=== PATIENT | female | born 1945 | race Caucasian/White ===

== ENCOUNTER 2019-02-17 11:11 | Outpatient (CLI) | payer MEDICARE, BC, SELFPAY ==
[2019-02-17 13:06] LABS: Abs Immature Grans 0.01 k/cumm (0.0-0.09); Absolute Basophil Count 0.06 k/cumm (0.0-0.2); Absolute Eosinophil Count 0.23 k/cumm (0.0-0.7); Absolute Lymphocyte Count 1.38 k/cumm (1.2-3.4); Absolute Monocyte Count 0.39 k/cumm (0.11-0.7); Absolute Neutrophil Count 2.94 k/cumm (1.2-6.7); Basophils % 1.2; Eosinophils % 4.6; HCT 39.9 % (36.0-46.0); HGB 13.6 g/dL (12.0-15.5); Immature Grans % 0.2; Lymphocytes % 27.5; Mean Corp. HGB Concentration 34.1 g/dL (32.0-36.0); Mean Corpuscular Hemoglobin 31.4 pg (27.0-33.0); Mean Corpuscular Volume 92.1 fL (80-95); Monocytes % 7.8; Neutrophils % 58.7; Platelet Count 294 x1000/uL (130-400); RBC 4.33 m/cumm (4.00-5.20); White Blood Cell Count 5.01 k/cumm (4.4-10.8)
[2019-02-17 13:27] LABS: ALT 34 U/L (12-78); AST 28 U/L (15-37); Albumin 3.9 g/dL (3.4-5.0); Alkaline Phosphatase 75 U/L (46-116); Anion Gap 9.9 mmol/L (3-11); BUN 13 mg/dL (7-18); Bilirubin, Total 0.6 mg/dL (0.2-1.0); C-Reactive Protein 0.44 mg/dL (0.0-0.3); CO2 29.1 mmol/L (21.0-32.0); CREATININE 0.71 mg/dL (0.55-1.02); Calcium 9.1 mg/dL (8.5-10.1); Chloride 102 mmol/L (98-107); Glucose 95 mg/dL (70-100); Potassium 3.6 mmol/L (3.5-5.1); Sodium 141 mmol/L (136-145); TSH 1.21 uIU/mL (0.358-3.74); Total Protein 7.1 g/dL (6.4-8.2)
[2019-02-17 14:03] LABS: ESR 18 MM/HR (0-30)
[2019-02-18 12:26] LABS: Lyme Ab w Rflx to Lyme Confirm Negative
== END 2019-02-17 11:31 ==
PROVIDERS: PCP Emergency Medicine; Visit Provider Emergency Medicine
DX: R53.83 Other fatigue (principal); E03.9 Hypothyroidism, unspecified; M25.50 Pain in unspecified joint
CPT/HCPCS: 36415; 80053; 85652; 84443; 85025; 86140; 86618

== ENCOUNTER → 2019-04-17 10:23 | Outpatient (BNVA) | payer MEDICARE, BC, SELFPAY | PROVIDERS: PCP Emergency Medicine; Referring Provider Emergency Medicine; Visit Provider Student in an Organized Health Care Education/Training Program | DX: M70.61 Trochanteric bursitis, right hip (principal); M70.62 Trochanteric bursitis, left hip; M76.891 Other specified enthesopathies of right lower limb, excluding foot; I10 Essential (primary) hypertension | CPT/HCPCS: 20610; 99213; J1040 ==

== ENCOUNTER 2019-08-27 00:34 | Outpatient (CLI) | payer MEDICARE, BC, SELFPAY ==
--- NOTE | 2019-08-27 12:45 | DI.MAMMO_ITS ---
EXAM: MG MAMMO SCREENING CLINICAL HISTORY: screening,z12.39 TECHNIQUE: Mammograms were interpreted according to the usual protocol including computer analysis w [employer] CAD system, tomosynthesis and C-view imaging. COMPARISON: Current examination is compared with multiple previous examinations including September 28 FINDINGS: The breasts are of moderate density with fairly symmetrical distribution of fibroglandular tissue. N o dominant mass or clumped microcalcification identified in either breast. Current examination is co mpared with multiple previous examinations including September 2017 and there has been no gross interva l change in appearance in comparison with previous studies. IMPRESSION: No specific evidence of malignancy at this time. Routine screening examinations are suggested at year ly intervals due to the family history of breast carcinoma. Category 1, breast density category B. BI-RADS Cat 1 - Negative Breast Density - Category B - Scattered areas of fibroglandular density
== END 2019-08-27 00:54 ==
PROVIDERS: PCP Emergency Medicine; Visit Provider Emergency Medicine
DX: Z12.31 Encounter for screening mammogram for malignant neoplasm of breast (principal); Z80.3 Family history of malignant neoplasm of breast
CPT/HCPCS: 77063; 77067

== ENCOUNTER 2019-09-30 10:29 | Outpatient (CLI) | payer MEDICARE, BC, SELFPAY ==
--- NOTE | 2019-09-30 10:03 | DI.RAD_ITS ---
EXAM: XR CHEST 2V PA LATERAL CLINICAL HISTORY: night sweats R61 GENERALIZED HYPERHIDROSIS. TECHNIQUE: 2D digital imaging was performed. COMPARISON: LEFT RIBS TO INCLUDE CXR from 04/06/2011 FINDINGS: LUNGS: Clear. No pleural abnormality seen. HEART: Normal. MEDIASTINUM: Normal. OTHER FINDINGS:Normal. BONE:Normal. IMPRESSION: No acute pulmonary findings.
== END 2019-09-30 10:49 ==
PROVIDERS: PCP Emergency Medicine; Visit Provider Emergency Medicine
DX: R61 Generalized hyperhidrosis (principal)
CPT/HCPCS: 71046

== ENCOUNTER → 2020-07-07 11:40 | Outpatient (BNVA) | payer MEDICARE, BC, SELFPAY | PROVIDERS: PCP Emergency Medicine; Referring Provider Emergency Medicine; Visit Provider Student in an Organized Health Care Education/Training Program | DX: M76.891 Other specified enthesopathies of right lower limb, excluding foot (principal); I10 Essential (primary) hypertension; Z98.890 Other specified postprocedural states | CPT/HCPCS: 99213 ==

== ENCOUNTER → 2020-08-11 10:55 | Outpatient (BNVA) | payer MEDICARE, BC, SELFPAY | PROVIDERS: PCP Emergency Medicine; Referring Provider Emergency Medicine; Visit Provider Student in an Organized Health Care Education/Training Program | DX: M76.891 Other specified enthesopathies of right lower limb, excluding foot (principal) | CPT/HCPCS: 99213 ==

== ENCOUNTER 2020-10-04 12:35 | Outpatient (REF) | payer MEDICARE, BC, SELFPAY ==
[2020-10-04 21:21] LABS: Anion Gap 5.5 mmol/L (3-11); BUN 17 mg/dL (7-18); CO2 30.5 mmol/L (21.0-32.0); Calcium 9.5 mg/dL (8.5-10.1); Chloride 102 mmol/L (98-107); Glucose 77 mg/dL (74-106); Potassium 3.9 mmol/L (3.5-5.1); Sodium 138 mmol/L (136-145)
== END 2020-10-04 12:55 ==
LOC: LBN 12:35
PROVIDERS: PCP Emergency Medicine; Visit Provider Emergency Medicine
DX: I10 Essential (primary) hypertension (principal)
CPT/HCPCS: 80048

== ENCOUNTER 2021-01-19 01:16 | Outpatient (CLI) | payer MEDICARE, BC, SELFPAY ==
--- NOTE | 2021-01-19 08:00 | DI.MAMMO_ITS ---
Exam(s) MAMMO SCREENING EXAM: MAMMO SCREENING CLINICAL HISTORY: screening,Z12.39. TECHNIQUE: Bilateral full field digital CC and MLO mammographic images were obtained with 3D tomosyn thesis and utilizing computer aided detection (CAD). COMPARISON: Prior mammograms dating back to 2010, the most recent being August 2019. FINDINGS: There are no new significant radiograph findings in left breast. In the right breast there is a slightly lobulated noncalcified well-defined nodule measuring 7 by 5 m illimeters located 3 cm in from the nipple, slightly medial of center, seen on both MLO and CC 3D arlet ging. More posteriorly the right breast there is a slightly increasing group of microcalcifications and mac rocalcifications which is probably within a small fibroadenoma which is been joint progressive increa se in calcifications since 2016. There is no significant architectural distortion nor skin thickening-retraction. IMPRESSION: 1. No radiographic evidence of malignancy in left breast 2. Lobulated noncalcified 7 x 5 millimeter nodule in the right breast. Also increasing microcalcific ation group posterior in the right breast which may be within a fibroadenoma. Recommend additional s pot views and right breast ultrasound BI-RADS Category 0 - Assessment Incomplete: Need additional imaging evaluation Breast Density - Category B - Scattered areas of fibroglandular density Breast density Category C or D implies that the patient has dense breast tissue. Dense breast tissue can make it harder to find cancer on a mammogram. Dense breast tissue is also associated with an incr eased risk of breast cancer. This information about the result of the mammogram report was provided to the patient to raise their awareness. Use this report when you speak with the patient about their risks for breast cancer, which includes their family history. At that time, you may recommend additional screening tests (Ultrasoun d or MRI) as these tests may add significant information. A negative radiographic report should not delay biopsy if a dominant or clinically suspicious mass is present. Up to ten percent of cancers are not identified on mammography. A negative report may reinforce clinical impression. Adenosis and dense breasts may obscure an underlying neoplasm. False positive reports average 6 to 10%. Patient will receive a letter notifying them of these results.
== END 2021-01-19 01:36 ==
PROVIDERS: PCP Emergency Medicine; Visit Provider Emergency Medicine
DX: Z12.31 Encounter for screening mammogram for malignant neoplasm of breast (principal)
CPT/HCPCS: 77063; 77067

== ENCOUNTER 2021-01-30 00:56 | Outpatient (CLI) | payer MEDICARE, BC, SELFPAY ==
--- NOTE | 2021-01-30 | DI.US_ITS ---
Exam(s) US BREAST RT COMPLETE EXAM: US BREAST RT COMPLETE CLINICAL HISTORY: F/U MAMMO, NODULE,MICRO AND MACROCALCIFICATIONS,? FIBROADENOMA. TECHNIQUE: Complete ultrasound of the right breast was performed incluing all 4 quadrants, the retro areolar region, and the ipsilateral axilla. COMPARISON: Prior mammograms were reviewed. Today's diagnostic mammogram images were also reviewed FINDINGS: Complete ultrasound of the right breast today revealed only a solitary finding which corresponds to t he nodule described slightly medial of center. This is at the 1 o'clock position and has the appeara nce of a bilobed cyst measuring 7 by 3 millimeters. There is no ultrasound finding to correspond to what is probably a small partially calcified fibroade noma located posteriorly, seen on the mammogram. No significant focal findings in the retroareolar region. Scanning of the right axilla reveals fat containing lymph nodes. IMPRESSION: 1. There is a 7 x 3 millimeter benign slightly lobulated microcyst which corresponds to the nodule on the mammogram located approximately 3 cm in from the nipple. 2. No other focal ultrasound findings in all 4 quadrants of the right breast Appropriate follow-up is repeat right breast imaging in 6 months, this to include repeat right breast mammogram and ultrasound.. BI-RADS Category 3 - 6 month - Probably Benign Finding: Recommend follow-up mammography and ultrasoun d in 6 months Breast Density - Category B - Scattered areas of fibroglandular density Breast density Category C or D implies that the patient has dense breast tissue. Dense breast tissue can make it harder to find cancer on a mammogram. Dense breast tissue is also associated with an incr eased risk of breast cancer. This information about the result of the mammogram report was provided to the patient to raise their awareness. Use this report when you speak with the patient about their risks for breast cancer, which includes their family history. At that time, you may recommend additional screening tests (Ultrasoun d or MRI) as these tests may add significant information. A negative radiographic report should not delay biopsy if a dominant or clinically suspicious mass is present. Up to ten percent of cancers are not identified on mammography. A negative report may reinforce clinical impression. Adenosis and dense breasts may obscure an underlying neoplasm. False positive reports average 6 to 10%. Patient will receive a letter notifying them of these results.
--- NOTE | 2021-01-30 15:06 | DI.MAMMO_ITS ---
Exam(s) MAMMO SCREEN CALL BACK UNI EXAM: MAMMO SCREEN CALL BACK UNI CLINICAL HISTORY: F/U MAMMO, NODULE,MICRO AND MACROCALCIFICATIONS,? FIBROADENOMA. TECHNIQUE: Unilateral spot mammographic images were obtained with 3D tomosynthesis and utilizing [employer] aided detection (CAD). . Complete right breast Ultrasound was also performed. COMPARISON: Prior mammograms were reviewed. This additional imaging was performed due to findings described on the recent screening mammogram of 01/19/2021. FINDINGS: Additional mammographic views performed todayreveal the slightly medial of center nodule to persist.F inding posteriorly is probably small partially calcified fibroadenoma. Ultrasound performed today reveals a 7 x 3 millimeter microcyst 1 o'clock corresponding to the medial of center nodule. There are no other focal findings on ultrasound.. IMPRESSION: Benign 7 x 3 millimeter microcyst correspond to the finding on the mammogram. 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 Appropriate follow-up is repeat right breast imaging in 6 months, this to include both repeat right b reast mammogram and ultrasound. The patient was informed of these findings and recommendations prior to leaving the department today. BI-RADS Category 3 - 6 month - Probably Benign Finding: Recommend follow-up mammography in 6 months Breast Density - Category B - Scattered areas of fibroglandular density Breast density Category C or D implies that the patient has dense breast tissue. Dense breast tissue can make it harder to find cancer on a mammogram. Dense breast tissue is also associated with an incr eased risk of breast cancer. This information about the result of the mammogram report was provided to the patient to raise their awareness. Use this report when you speak with the patient about their risks for breast cancer, which includes their family history. At that time, you may recommend additional screening tests (Ultrasoun d or MRI) as these tests may add significant information. A negative radiographic report should not delay biopsy if a dominant or clinically suspicious mass is present. Up to ten percent of cancers are not identified on mammography. A negative report may reinforce clinical impression. Adenosis and dense breasts may obscure an underlying neoplasm. False positive reports average 6 to 10%. Patient will receive a letter notifying them of these results.
== END 2021-01-30 01:16 ==
PROVIDERS: PCP Emergency Medicine; Visit Provider Emergency Medicine
DX: Z12.31 Encounter for screening mammogram for malignant neoplasm of breast (principal); R92.8 Other abnormal and inconclusive findings on diagnostic imaging of breast; N60.01 Solitary cyst of right breast; N60.81 Other benign mammary dysplasias of right breast
CPT/HCPCS: 76642; 77063; 77067

== ENCOUNTER 2021-04-24 09:51 | Outpatient (CLI) | payer MEDICARE, BC, SELFPAY ==
--- NOTE | 2021-04-24 09:30 | DI.RAD_ITS ---
Exam(s) XR HIP LT COMPLETE AP PELVIS EXAM: XR HIP LT COMPLETE AP PELVIS CLINICAL HISTORY: L hip pain. TECHNIQUE: 2D digital imaging was performed. COMPARISON: CR BILATERAL HIPS ADULT from 11/27/2013 FINDINGS: There is no evidence of pelvic nor hip fracture. There has been interval left hip surgery with a single fixation device at the level of the greater tr ochanter. This is probably related to reattachment of the gluteus medius tendon at this level. No h ip joint space narrowing on either side. No osteophytes. No radiographic evidence of osteomyelitis. 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 IMPRESSION: DATA REPOSITORY: RADIATION DOSE DELIVERED:
== END 2021-04-24 09:52 | disposition home or self-care (01) ==
LOC: DIORS 09:51
PROVIDERS: PCP Emergency Medicine; Referring Provider Emergency Medicine; Visit Provider Student in an Organized Health Care Education/Training Program
DX: M25.552 Pain in left hip; M70.62 Trochanteric bursitis, left hip
CPT/HCPCS: 20610; 73502; J1040

== ENCOUNTER → 2021-07-17 09:37 | Outpatient (BNVA) | payer MEDICARE, BC, SELFPAY | PROVIDERS: PCP Emergency Medicine; Visit Provider Student in an Organized Health Care Education/Training Program | DX: M75.81 Other shoulder lesions, right shoulder (principal); M75.21 Bicipital tendinitis, right shoulder; M70.62 Trochanteric bursitis, left hip; M70.61 Trochanteric bursitis, right hip | CPT/HCPCS: 99213 ==

== ENCOUNTER 2021-08-09 00:38 | Outpatient (CLI) | payer MEDICARE, BC, SELFPAY ==
--- NOTE | 2021-08-09 07:00 | DI.MAMMO_ITS ---
Exam(s) MG MAMMO DIAGNOSTIC UNI US BREAST RT COMPLETE EXAM: MG MAMMO DIAGNOSTIC UNI and U/S breast RT complete CLINICAL HISTORY: 3-6 MO F/U.R92.8. TECHNIQUE: Craniocaudal and mediolateral oblique Full Field Digital Mammography views of the right b reast with Computer Aided Diagnosis followed by Tomosynthesis and right breast ultrasound. COMPARISON: Comparison is made with prior examinations. FINDINGS: Mammography/Tomosynthesis: Masses/Architectural Distortion: There is no change in the appearance of the nodule in the right retr oareolar region. Microcalcifictions: No suspicious pleomorphic-type are seen. Skin Thickening/Nipple Retraction: None. Right breast US: Echotexture: Normal appearance of the glandular tissue. Shadowing: No suspicious foci. Cyst: There is a simple cysts seen at the 1 o'clock position of the right breast 2 cm from the nipple measuring 8.5 x 2.2 x 4.2 mm. There is also a cyst seen at the 6 o'clock position of the right [address] 3 cm from the nipple measuring 5 x 4.4 x 2.6 mm. Solid lesions: None seen. Ductal dilation: None. IMPRESSION: 1. No evidence of malignancy is noted. 2. Unless there is more urgent need, follow-up screening mammography is recommended, as per [place] [employer] guidelines. 3. The findings were discussed with the patient on the date of the examination. BI-RADS Category 2 - Benign Findings Breast Density - Category B - Scattered areas of fibroglandular density Breast density Category C or D implies that the patient has dense breast tissue. Dense breast tissue can make it harder to find cancer on a mammogram. Dense breast tissue is also associated with an incr eased risk of breast cancer. This information about the result of the mammogram report was provided to the patient to raise their awareness. Use this report when you speak with the patient about their risks for breast cancer, which includes their family history. At that time, you may recommend additional screening tests (Ultrasoun d or MRI) as these tests may add significant information. A negative radiographic report should not delay biopsy if a dominant or clinically suspicious mass is present. Up to ten percent of cancers are not identified on mammography. A negative report may reinforce clinical impression. Adenosis and dense breasts may obscure an underlying neoplasm. False positive reports average 6 to 10%. Patient will receive a letter notifying them of these results.
== END 2021-08-09 00:58 ==
PROVIDERS: PCP Emergency Medicine; Visit Provider Emergency Medicine
DX: R92.8 Other abnormal and inconclusive findings on diagnostic imaging of breast (principal); Z09 Encounter for follow-up examination after completed treatment for conditions other than malignant neoplasm; N60.01 Solitary cyst of right breast
CPT/HCPCS: 76642; 77061; 77065; G0279

== ENCOUNTER 2022-01-04 03:02 | Outpatient (CLI) | payer MEDICARE, BC, SELFPAY ==
[2022-01-04 13:21] LABS: HCT 38.4 % (36.0-46.0); HGB 12.9 g/dL (11.2-15.7); MCH 30.7 pg (27.0-33.0); MCHC 33.6 % (32.0-36.0); MCV 91 fL (80-95); MPV 9.6 fL (8.0-11.0); Platelet Count 293 10^3/uL (130-400); RDW 11.9 % (11.7-14.6); RDW-SD 39.5 fL; WBC 6.81 10^3/uL (4.4-10.8)
[2022-01-04 14:08] LABS: Anion Gap 8.5 mmol/L (3-11); BUN 16 mg/dL (7-18); CO2 28.5 mmol/L (21.0-32.0); Calcium 8.7 mg/dL (8.5-10.1); Chloride 102 mmol/L (98-107); Glucose 144 mg/dL (74-106); Potassium 3.9 mmol/L (3.5-5.1); Sodium 139 mmol/L (136-145)
== END 2022-01-04 03:03 | disposition home or self-care (01) ==
LOC: LBO 03:03
PROVIDERS: PCP Family Medicine; Visit Provider Emergency Medicine
DX: I10 Essential (primary) hypertension (principal)
CPT/HCPCS: 36415; 80048; 85027

== ENCOUNTER 2022-01-09 01:51 | Outpatient (CLI) | payer MEDICARE, BC, SELFPAY ==
[2022-01-09 12:31] LABS: Hemoglobin A1C 5.6 % (<5.7)
== END 2022-01-09 01:52 | disposition home or self-care (01) ==
LOC: LOS 01:52
PROVIDERS: PCP Family Medicine; Visit Provider Emergency Medicine
DX: E11.9 Type 2 diabetes mellitus without complications (principal)
CPT/HCPCS: 36415; 83036

== ENCOUNTER → 2022-08-10 09:04 | Outpatient (BNVA) | payer MEDICARE, BC, SELFPAY | PROVIDERS: PCP Family Medicine; Referring Provider Family Medicine; Visit Provider Student in an Organized Health Care Education/Training Program | DX: M70.62 Trochanteric bursitis, left hip (principal) | CPT/HCPCS: 20610; J1040 ==

== ENCOUNTER 2022-12-20 01:42 | Outpatient (CLI) | payer MEDICARE, BC, SELFPAY ==
[2022-12-20 14:19] LABS: Anion Gap 6.6 mmol/L (3-11); BUN 18 mg/dL (7-18); CO2 31.4 mmol/L (21.0-32.0); CREATININE 0.8 mg/dL (0.55-1.02); Calcium 9.4 mg/dL (8.5-10.1); Calculated LDL 142 mg/dL (<100); Chloride 100 mmol/L (98-107); Cholesterol 220 mg/dL (<200); Estimated GFR 76.79 (mL/min/1.73m2); Glucose 139 mg/dL (74-106); HDL Cholesterol 59 mg/dL (40-60); Potassium 3.4 mmol/L (3.5-5.1); Sodium 138 mmol/L (136-145); Triglyceride 98 mg/dL (<150)
== END 2022-12-20 01:43 | disposition home or self-care (01) ==
LOC: LBO 01:42
PROVIDERS: PCP Family Medicine; Visit Provider Family Medicine
DX: I10 Essential (primary) hypertension (principal); Z13.6 Encounter for screening for cardiovascular disorders
CPT/HCPCS: 36415; 80048; 80061

== ENCOUNTER → 2023-01-21 10:28 | Outpatient (BNVA) | payer MEDICARE, BC, SELFPAY | PROVIDERS: PCP Family Medicine; Referring Provider Family Medicine | DX: M70.62 Trochanteric bursitis, left hip (principal) | CPT/HCPCS: 99213 ==

== ENCOUNTER 2023-02-01 00:20 | Outpatient (CLI) | payer MEDICARE, BC, SELFPAY ==
--- NOTE | 2023-02-01 07:45 | DI.MAMMO_ITS ---
Exam(s) MAMMO SCREENING EXAM: MAMMO SCREENING CLINICAL HISTORY: screening,Z12.39. TECHNIQUE: Bilateral full field digital CC and MLO mammographic images were obtained with 3D tomosyn thesis and utilizing computer aided detection (CAD). COMPARISON: Prior mammograms were reviewed. Prior ultrasounds reviewed. FINDINGS: There has been no significant change in the appearance and distribution of the fibroglandular tissue. Left side skin mole on MLO view again noted Asymmetric density in left breast is unchanged prior studies. There are no new spiculated masses nor malignant appearing microcalcification groups. Benign-appearing micro and macro calcifications are again noted bilaterally and a microcalcification group posteriorly in the right breast remains relatively stable in appearance. There is no significant architectural distortion nor skin thickening-retraction. IMPRESSION: Stable benign-appearing findings. No radiographic evidence of malignancy. BI-RADS Category 2 - Benign Findings Breast Density - Category B - Scattered areas of fibroglandular density Breast density Category C or D implies that the patient has dense breast tissue. Dense breast tissue can make it harder to find cancer on a mammogram. Dense breast tissue is also associated with an incr eased risk of breast cancer. This information about the result of the mammogram report was provided to the patient to raise their awareness. Use this report when you speak with the patient about their risks for breast cancer, which includes their family history. At that time, you may recommend additional screening tests (Ultrasoun d or MRI) as these tests may add significant information. A negative radiographic report should not delay biopsy if a dominant or clinically suspicious mass is present. Up to ten percent of cancers are not identified on mammography. A negative report may reinforce clinical impression. Adenosis and dense breasts may obscure an underlying neoplasm. False positive reports average 6 to 10%. Patient will receive a letter notifying them of these results.
== END 2023-02-01 00:40 ==
LOC: DI 00:20
PROVIDERS: PCP Family Medicine; Visit Provider Family Medicine
DX: Z12.31 Encounter for screening mammogram for malignant neoplasm of breast (principal)
CPT/HCPCS: 77063; 77067

== ENCOUNTER → 2023-02-05 11:21 | Outpatient (BNVA) | payer MEDICARE, BC, SELFPAY | PROVIDERS: PCP Family Medicine; Referring Provider Family Medicine; Visit Provider Student in an Organized Health Care Education/Training Program | DX: M70.62 Trochanteric bursitis, left hip (principal); M76.32 Iliotibial band syndrome, left leg; M67.952 Unspecified disorder of synovium and tendon, left thigh | CPT/HCPCS: 99214 ==

== ENCOUNTER 2023-02-22 10:51 | Day surgery (SDC) | payer MEDICARE, BC, SELFPAY ==
[2023-02-22] VITALS (7 sets, daily range): BP systolic 129–161; BP diastolic 66–82; PULSE 71–95; RESP 14–17; TEMP 36.3–36.5; O2SAT 95–98
--- NOTE | 2023-02-22 08:01 | ROE_ITS ---
Date of service: 02/22/23 Time of Service: 15:00 Operative Note Operative Note DATE OF PROCEDURE: 02/22/23 PRE-OP DIAGNOSIS: Left hip 1. Iliotibial band syndrome 2. Recurrent trochanteric bursitis POST-OP DIAGNOSIS: same Left hip 1. Iliotibial band syndrome 2. Recurrent trochanteric bursitis 3. Failed gluteal tendon repair or recurrent tear PROCEDURE: Left hip endoscopic 1. Iiliotibial band release, CPT# 70727 2. Revision trochanteric bursectomy, CPT# 12547 3. Revision gluteal tendon repair, CPT# 85009 4. Removal of hardware, CPT #84317: Permanent suture material from prior repair SURGEON: Addison Maher ANESTHESIA TYPE: Local By Surgeon and Spinal Refer to Anesthesia Record ESTIMATED BLOOD LOSS: 5 COMPLICATIONS: None Patient was transported to: PACU Patient's condition: stable Implants: [employer] 5.5 mm bio composite SwiveLock anchor Indications: Please see complete medical record for details. Findings: Diffusely thickened and scarred iliotibial band. Abundant inflamed trochanteric bursitis. Moderately large gluteal tendon tear with void starting anteriorly and proximally over the prior repair site of retained metallic suture anchor and continuing approximately in a longitudinal fashion. Procedure Description: In the operating room, general anesthesia was induced. The patient was positioned supine on the [place] operating room table. All bony prominences were well-padded. Preoperative antibiotics were administered. The hip was prepped and draped in the usual sterile fashion. The correct patient, procedure, and side of the procedure were all verified prior to incision. 30 cc of 0.25% bupivacaine containing epinephrine was infiltrated about the subcutaneous tissues for the planned anterior lateral and distal anterolateral portals as well as deeply over the greater trochanter. A knife was used to incise the skin for the anterior lateral and distal anterolateral portals followed by blunt dissection subcutaneously. Under fluoroscopic guidance, a switching stick and arthroscope were inserted localizing the iliotibial band over the greater trochanter. Blunt dissection and the mechanical shaver were used to resect fat and overlying scar tissue about the center of the iliotibial band and carefully expose the anterior and posterior margins. Retained permanent suture material was removed using a pituitary rongeur at the posterior and distal margins of the prior iliotibial band and Z?lengthening. Once there was adequate exposure of the IT band, the greater trochanter was again localized under fluoroscopic guidance with a spinal needle inserted through the skin down to bone. This central area was marked using the radiofrequency ablator. A [place] blade was brought in and used to create a 2 cm longitudinal incision in line with the IT band fibers as well as extending it in a cruciate fashion with 2 cm incisions anteriorly and posteriorly. The radiofrequency ablator was used to achieve hemostasis. The mechanical shaver was then used to debride the IT band released edges exposing the trochanteric bursa. The release was extended slightly more in all directions given the fuller tight tissue present around the margins of the greater trochanter. The mechanical shaver was then used to excise the trochanteric bursa taking care to protect musculature about the margins of the greater trochanter as well as neurovascular structures especially posteriorly. There was excellent visualization of the vastus lateralis, gluteus anna tendon, as well as gluteus medius confirming appropriate bursa excision. The hip was brought through range of motion including internal and external rotation and there was no impinging iliotibial band tissue or remaining pathologic bursa. The viewing and working portals were switched and appropriate IT band release, trochanteric bursa excision, and hemostasis confirmed. The site of prior repair had an obvious tendon void. Prior repairs metallic suture anchor tip was just prominent to the bone laterally. Permanent suture material was still not into it and removed completely using the pituitary rongeur. The suture anchor was tested, and not loose. The prior gluteal tendon repair must have largely failed or there was a recurrent tear at this same location. Fibrinous material on the greater tuberosity about the suture anchor was removed using mechanical shaver and the bone and tendon edges debrided to a stable margin and prepared using rasp to optimize healing. The metallic suture anchor stump was grasped with a pituitary rongeur and various clamps, but could not be removed. The corresponding handle was obtained from a new [employer] anchor, which was inserted down to the anchor, but the anchor would not span and the limited fixation points available were stripped. Given the size of this suture anchor and the fact that it was minimally prominent, decision was made to leave it in place as opposed to making a large hole in the greater trochanter bone, which would compromise the revision repair. The longitudinal split in the gluteus medius was then repaired using the self retrieving suture passer to shuttle a simple suture tape repair stitch and secured with [facility] arthroscopic knot. There was excellent closure of this aspect of the tear. The anterior gluteus minimus and proximal medius tendon tissue were then confirmed to reduce to the prepared area of the greater trochanter immediately proximal and anterior to the retained metallic anchor. The self retrieving suture passer was then used to place an inverted horizontal mattress FiberTape stitch in the anterior and medial tendon. With fluoroscopic assistance this site was punched and then tapped ensuring proper bone quality and placement for the planned suture anchor. The repair tapes were then loaded on a 5.5 mm SwiveLock anchor, appropriate tension set, and the suture anchor successfully deployed with excellent tendon and bone fixation strength. Lastly, a safety FiberWire stitch from the sliding anchor eyelet was then shuttled through the remaining small tendon void just proximal to the anchor incorporating the anterior and posterior tissue into a simple [id number] repair again secured with [facility] arthroscopic knot. The repair demonstrated excellent reduction and fixation through range of motion and testing. Suction was used to remove fluid from the endoscopic space. The portals were closed using 3-0 Monocryl in a buried fashion. Steri-Strips were applied over the incisions followed by Xeroform, 4 x 4 gauze, an ABD pad, and secured with tape. The patient awoke from anesthesia without complication and was transferred to the recovery room in a stable condition.
--- NOTE | 2023-02-22 08:02 | PDOC.DSDIS_ITS ---
Date of service: 02/22/23 Time of Service: 15:00 Discharge Plan Disposition Patient Disposition: Home Discharge Details Attending Provider: Addison Maher Primary Care Provider: Pastora Grubbs Home Meds and New Rx's Prescriptions: New naproxen 250 mg tablet 250 - 500 mg PO BID PRNQty: 30 0RF Rx Instructions: take with a meal aspirin 81 mg tablet,delayed release (DR/EC) 81 mg PO DAILY 14 Days Qty: 14 0RF ondansetron 4 mg tablet,disintegrating 4 mg PO Q6H PRN (Reason: nausea or vomiting) Qty: 5 0RF oxycodone 5 mg tablet 2.5 - 5 mg PO Q4H MDD 30 mg PRN (Reason: moderate to severe pain) Qty: 5 0RF Continued famotidine [Pepcid AC] 10 mg tablet 10 mg PO DAILY hydrochlorothiazide 25 mg tablet 25 mg PO DAILY Qty: 90 3RF acetaminophen 500 mg capsule 500 mg PO Q6H PRN lisinopril 20 mg tablet 20 mg PO DAILY Qty: 90 3RF multivitamin [Daily Multi-Vitamin] 1 EACH tablet 1 ea PO DAILY rosuvastatin 10 mg tablet 10 mg PO DAILY Qty: 90 3RF Discontinued ibuprofen 200 MG tablet 200 mg PO daily prn Discharge Instructions Additional Instructions: Surgery: Left hip endoscopy with iliotibial band release, removal of hardware (permanent suture), revision trochanteric bursectomy, and gluteal tendon repair Activity: Protected weightbearing with a walker for 6 weeks. Gentle hip range of motion. No abductor strengthening for 10 weeks. A physical therapy prescription will be sent electronically to begin in about 4 weeks. Prescriptions: Aspirin 81 mg take 1 daily to prevent a blood clot for 2 weeks Naproxen 250 mg take 1-2 every 12 hours with a meal as needed for moderate pain Oxycodone 5 mg take 1/2-1 every 4-6 hours as needed for severe pain You may use [id number] Tylenol (acetaminophen) as needed for mild pain. Ondansetron (Zofran) 4 mg take 1 orally dissolving tablet every 6 hours as needed for nausea or vomiting These pain medications may be taken all at once or in different combinations as needed. Also, recommend Colace (docusate) as a stool softener as surgery and pain medicine cause constipation. You may try [id number] diphenhydramine (Benadryl) 25-50 mg nightly as a sleep aid Dressings: Leakage is possible?if the dressing becomes saturated, please remove and apply clean dry gauze. Leave dressing in place for 3 days. May then satish ve and leave open to air or cover incisions with Band-Aids. Leave the sticky Steri-Strips in place until they fall off or remove them after you shower. May shower after 5 days. Follow-up: 10-[address] Maher You may take off the leg compression stockings this evening at home. You may also leave them on a few days longer if you have a history of leg swelling or edema. Let us know right away if you develop any redness, drainage, fevers, chest pain, or trouble breathing. Do not drink alcohol or drive for at least 24 hours after anesthesia. Please call the office during business hours with any questions or concerns. Discharge Orders Discharge Orders: Discharge Order (Routine); Ordered 02/22/23 Ordered By: Addison Maher DS: Diagnosis Discharge Diagnosis (1) Tendinopathy of left gluteus medius: Status: Acute (2) Iliotibial band syndrome of left side: Status: Acute (3) Trochanteric bursitis, left hip: Status: Chronic
[2023-02-22] MEDS: Lactated Ringers 1,000 ML 30 ML IV ×2 (11:49→15:54)
--- NOTE | 2023-02-22 13:15 | DI.RAD_ITS ---
Exam(s) XR HIP LT IN OR EXAM: XR HIP LT IN OR CLINICAL HISTORY: Trochanteric bursitis, left hip. TECHNIQUE: 2D digital imaging was performed. COMPARISON: No exams were available for comparison FINDINGS: Fluoroscopy provided during orthopedic procedure. See procedure report for details Total fluoroscopy time 5.4 seconds Radiation exposure index/cumulative dose: Ka,r= 0.5704 mGy IMPRESSION: DATA REPOSITORY: RADIATION DOSE DELIVERED:
--- NOTE | 2023-02-22 13:30 | W.ANESPRE ---
General Info Date of Service Date Performed: 02/22/23 Height: 5 ft 1.75 in Weight: 73.9 kg Body Mass Index (BMI): 30.0 Surgical Procedure: Operation Date: 02/22/23 12:50 Proposed Procedure Side Surgeon p Endoscopic Iliotibial Band Release w/ Trochanteric Bursectomy Left Addison Maher MD Meds Allergies and Home Medications Allergies Allergy/AdvReac Type Severity Reaction Status Date / Time fluoxetine HCl [From Prozac] Allergy Intermediate RASH Verified 02/22/23 11:26 nickel Allergy Mild RASH Verified 02/22/23 11:26 amlodipine AdvReac Intermediate abd pain Verified 02/22/23 11:26 felodipine AdvReac Intermediate headache Verified 02/22/23 11:26 omeprazole AdvReac Intermediate rash Verified 02/22/23 11:26 wheat AdvReac Mild Acid Reflux Verified 02/22/23 11:26 tramadol AdvReac Nausea Verified 02/22/23 11:26 Home Medication Medication Instructions Recorded multivitamin (Daily Multi-Vitamin 1 ea PO DAILY 05/20/13 tablet) famotidine 10 mg tablet (Pepcid AC) 10 mg PO DAILY 06/27/22 hydrochlorothiazide 25 mg tablet 25 mg PO DAILY #90 tabs 06/27/22 acetaminophen 500 mg capsule 500 mg PO Q6H PRN 01/09/23 lisinopril 20 mg tablet 20 mg PO DAILY #90 tabs 01/09/23 rosuvastatin 10 mg tablet 10 mg PO DAILY #90 tabs 01/10/23 aspirin 81 mg tablet,delayed 81 mg PO DAILY Prevent blood clot 02/22/23 release 14 days #14 tabs naproxen 250 mg tablet 250 - 500 mg PO BID PRN #30 tabs 02/22/23 ondansetron 4 mg disintegrating 4 mg PO Q6H PRN nausea or vomiting 02/22/23 tablet #5 tabs oxycodone 5 mg tablet 2.5 - 5 mg PO Q4H PRN moderate to 02/22/23 severe pain #5 tabs Current Visit Medications: Current Medications Generic Name Dose Route Start Last Admin Trade Name Freq PRN Reason Stop Dose Admin Acetaminophen 1,000 mg 02/22/23 07:58 Acetaminophen 500 Mg Tab PO 03/24/23 07:57 Q6H PRN PRN Ringer's Solution 1,000 mls @ 30 mls/hr 02/22/23 06:00 02/22/23 11:49 IV 03/23/23 23:59 30 mls/hr INFUSION RON Administration Cefazolin Sodium/Dextrose 2 gm in 50 mls @ 100 mls/hr 02/22/23 06:00 Ancef Duplex IVPB 02/22/23 16:00 PREOP RON IV Miscellaneous Supplies 1 each 02/22/23 06:00 Iv Access IV 03/23/23 23:59 DIRECTED RON Naproxen 250 - 500 mg 02/22/23 07:58 Naproxen 500 Mg Tab PO 03/24/23 07:57 BID PRN PRN Oxycodone HCl 5 - 10 mg 02/22/23 07:58 Oxycodone 5 Mg Tab PO 03/24/23 07:57 Q4H PRN PRN Sodium Chloride 0 ml 02/22/23 06:00 Normal Saline Flush 10 Ml Syr IV 03/23/23 23:59 PRN PRN Sodium Chloride 0 ml 02/22/23 06:00 Normal Saline 10 Ml Vial IJ 03/23/23 23:59 DIRECTED PRN Sterile Water 0 ml 02/22/23 06:00 Water,Injection,Sterile 10 Ml Vial IJ 03/23/23 23:59 DIRECTED PRN PFSH Active Problems Active Problems: Problem Status Onset Code Essential hypertension 11/26/13 I10 Gastroesophageal reflux disease K21.9 Osteoarthritis M19.90 Asymmetrical sensorineural hearing loss of both ears H90.3 Trochanteric bursitis, left hip M70.62 Right rotator cuff tendinitis M75.81 Biceps tendinitis of right shoulder M75.21 Trochanteric bursitis, right hip M70.61 Ear itch L29.9 Risk for coronary artery disease greater than 20% in next 10 years Z91.89 Iliotibial band syndrome of left side M76.32 Tendinopathy of left gluteus medius M67.952 Medical History Medical History Abnormal mammogram, unspecified LEFT Breast-atypical hyperplasia; breast bx-neg Diverticulosis (12/13/15) Dysfunctional uterine bleeding (08/08/94) perimenopausal bleeding; endometrial BX-neg. Hematuria, unspecified neg. 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 Seasonal affective disorder Tinnitus Surgical History Surgical History Biopsy of breast atypical hyperplasia; excison-fibrocystic History of bunionectomy History of endoscopy (~11/2000) Ligation of fallopian tube Tendonitis involving left hip abductors (04/19/16) surgery 11/09/2016 Tobacco Smoking/Tobacco Use Status: Former Tobacco Use Second hand exposure: Yes Alcohol Alcohol Intake: current Alcohol intake frequency: a few times a week Alcohol type: wine Substance Use Substance use: Never Substance use type: does not use Vital Signs and Lab Results Vital Signs Most Recent Vital Signs in EMR: Most Recent Vital Signs Temp Pulse Resp BP Pulse Ox 36.4 C L 95 H 17 151/82 H 96 02/22/23 11:30 02/22/23 11:30 02/22/23 11:30 02/22/23 11:30 02/22/23 11:30 Lab Results Blood Type / Crossmatch: No Data to Display Complete Blood Count: No Data to Display Complete Metabolic Panel: No Data to Display Liver Function Panel: No Data to Display Coagulation Panel: No Data to Display Cardiac Panel: No Data to Display Arterial Blood Gas: No Data to Display Venous Blood Gas: No Data to Display Pancreas Panel: No Data to Display Thyroid Panel: No Data to Display Infectious Disease: No Data to Display Blood Cultures: No Data to Display Toxicology Panel: No Data to Display Anesthesia Assessment and Plan Anesthesia History Personal History: No History of Anesthesia Complications Family History: No Family History of Anesthesia Complications Exercise Tolerance Exercise Tolerance: Metabolic Equivalents>4 Cardiac & Pulmonary Exam Cardiac Exam: Normal S1/S2 Heart Sounds Pulmonary Exam: Clear Bilateral Breath Sounds Implantable Cardiac Device Does patient have a Pacemaker or an ICD?: No Airway Exam Known Difficult Airway: No Mallampati Class: 2 Mouth Opening: Normal (> 3cm) Thyromental Distance: Greater than 3 cm Neck Range of Motion: Full ROM Neck Circumference: Normal Teeth Condition: Normal Dentition ASA Classification ASA Score: ASA 2 Emergency Case?: No NPO Status NPO Status: NPO Clears >2 hours, Solids >8 hours Anesthesia Plan Resuscitation Status: Full Code Anesthesia Technique: Spinal Anesthesia Airway Planned: Natural Airway Monitors Used: Standard Monitors
[2023-02-22] MEDS: ceFAZolin 2 GM/50 ML BAG IVPB (14:05)
[2023-02-22] MEDS: EPINEPHrine 30 MG/30 ML VIAL (14:40)
[2023-02-22] MEDS: fentaNYL 100 MCG/2 ML VIAL IVP (16:07)
--- NOTE | 2023-02-22 16:17 | W.ANESPOSTOP ---
Postoperative Evaluation Date, Time and Location Date Performed: 02/22/23 Time Performed: 16:17 Patient Location: PACU Vital Signs Most Recent Imported Vital Signs: Most Recent Vital Signs Temp Pulse Resp BP Pulse Ox 36.5 C 73 17 161/71 H 95 02/22/23 16:13 02/22/23 16:13 02/22/23 16:13 02/22/23 16:13 02/22/23 16:13 Pain Score Most Recent Pain Score: Most Recent Pain Score Pain Level 5 02/22/23 16:13 Assessment Mental Status: Awake (Alert & Oriented to Patient Baseline) Airway and Respiratory Function: Patent airway with normal (patient baseline) respiratory exam Cardiovascular Function: Hemodynamically Stable Hydration Status: Adequately Hydrated Nausea & Vomiting: No Nausea or Vomiting Pain: Pain is tolerable per patient Peripheral Nerve Block: Patient did not receive a nerve block
[2023-02-22] MEDS: oxyCODONE 5 MG TAB PO (16:51)
== END 2023-02-22 17:40 | disposition home or self-care (01) ==
PROVIDERS: PCP Family Medicine; Visit Provider Student in an Organized Health Care Education/Training Program
PROC: (CPT 29863; principal; 2023-02-22 12:30)
DX: M76.32 Iliotibial band syndrome, left leg (principal); M70.62 Trochanteric bursitis, left hip; M76.02 Gluteal tendinitis, left hip
CPT/HCPCS: 20680; 27062; 27305; 27006; 73501; J0690; J1100; J1885; J2001; J2405; J2704; J3010

== ENCOUNTER → 2023-03-06 13:24 | Outpatient (BNVA) | payer MEDICARE, BC, SELFPAY | PROVIDERS: PCP Family Medicine; Referring Provider Family Medicine; Visit Provider Student in an Organized Health Care Education/Training Program | DX: S76.012A Strain of muscle, fascia and tendon of left hip, initial encounter (principal); X58.XXXA Exposure to other specified factors, initial encounter; M70.61 Trochanteric bursitis, right hip ==

== ENCOUNTER → 2023-04-17 13:17 | Outpatient (BNVA) | payer MEDICARE, BC, SELFPAY | PROVIDERS: PCP Family Medicine; Referring Provider Family Medicine; Visit Provider Student in an Organized Health Care Education/Training Program | DX: Z47.89 Encounter for other orthopedic aftercare (principal); M70.61 Trochanteric bursitis, right hip ==

== ENCOUNTER → 2023-06-05 10:37 | Outpatient (BNVA) | payer MEDICARE, BC, SELFPAY | PROVIDERS: PCP Family Medicine; Referring Provider Family Medicine; Visit Provider Student in an Organized Health Care Education/Training Program | DX: M70.62 Trochanteric bursitis, left hip (principal) | CPT/HCPCS: 99213 ==

== ENCOUNTER 2023-07-04 04:07 | Outpatient (CLI) | payer MEDICARE, BC, SELFPAY ==
[2023-07-04 09:49] LABS: ALT 36 U/L (14-59); AST 28 U/L (15-37); Albumin 3.8 g/dL (3.4-5.0); Alkaline Phosphatase 67 U/L (46-116); Anion Gap 8.9 mmol/L (3-11); BUN 15 mg/dL (7-18); Bilirubin, Total 0.7 mg/dL (0.2-1.0); CO2 28.1 mmol/L (21.0-32.0); CREATININE 0.8 mg/dL (0.55-1.02); Calcium 9.7 mg/dL (8.5-10.1); Calculated LDL 60 mg/dL (<100); Chloride 104 mmol/L (98-107); Cholesterol 139 mg/dL (<200); Estimated GFR 76.79 (mL/min/1.73m2); Glucose 97 mg/dL (74-106); HDL Cholesterol 55 mg/dL (40-60); Potassium 3.9 mmol/L (3.5-5.1); Sodium 141 mmol/L (136-145); Total Protein 7.4 g/dL (6.4-8.2); Triglyceride 122 mg/dL (<150)
== END 2023-07-04 04:08 | disposition home or self-care (01) ==
LOC: LBO 04:07
PROVIDERS: PCP Family Medicine; Visit Provider Family Medicine
DX: I10 Essential (primary) hypertension (principal); Z00.00 Encounter for general adult medical examination without abnormal findings; Z13.6 Encounter for screening for cardiovascular disorders
CPT/HCPCS: 36415; 80053; 80061

== ENCOUNTER 2023-10-23 13:41 | Outpatient (CLI) | payer MEDICARE, BC, SELFPAY ==
--- NOTE | 2023-10-23 13:30 | RT.EKG_ITS ---
APPROVED REPORT Exam: Resting ECG Reason for Exam: elevated blood pressure Patient Location: O HR:73 bpm ECG Measurements Heart Rate 73 AXIS OK 159 P 14 QRSd 91 QRS -8 QT 404 T 25 QTc 446 Conclusion Sinus rhythm...normal P axis, V-rate 50- 99 Multiple ventricular premature complexes...V complexes w/ short R-R intervls LVH by voltage...R >1.10 in aVL
== END 2023-10-23 13:42 | disposition home or self-care (01) ==
LOC: DI.CM 13:42
PROVIDERS: PCP Family Medicine; Visit Provider Family Medicine
DX: I49.9 Cardiac arrhythmia, unspecified (principal)
CPT/HCPCS: 93010

== ENCOUNTER 2023-10-23 14:38 | Emergency (ER) | payer MEDICARE, BC, SELFPAY ==
[2023-10-23] VITALS (257 sets, daily range): BP systolic 102–223; BP diastolic 48–135; PULSE 46–85; RESP 8–29; TEMP 36.6; O2SAT 98
--- NOTE | 2023-10-23 14:30 | RT.EKG_ITS ---
APPROVED REPORT Exam: Resting ECG Reason for Exam: Chest Pain Patient Location: E HR:74 bpm ECG Measurements Heart Rate 74 AXIS CO 157 P 18 QRSd 85 QRS -6 QT 367 T 47 QTc 408 Conclusion Sinus rhythm...normal P axis, V-rate 60- 99 Ventricular trigeminy...trigeminy string>6 w/ V complexes sinus rhtyhm, normal axis, frequent PVCs
--- NOTE | 2023-10-23 14:45 | DI.RAD_ITS ---
Exam(s) XR CHEST 2V PA LATERAL EXAM: XR CHEST 2V PA LATERAL CLINICAL HISTORY: htn, chest pain, PVCs TECHNIQUE: 2D digital imaging was performed. COMPARISON: CR XR CHEST 2V PA LATERAL from 09/30/2019 FINDINGS: HEART: Enlarged. Aorta: Mildly tortuous. PULMONARY VASCULATURE: Normal. LUNGS: Clear. PLEURAL SPACE: No pleural effusion or pneumothorax. BONE:Unremarkable for age. Soft tissues: Unremarkable. IMPRESSION: No acute abnormality. DATA REPOSITORY: RADIATION DOSE DELIVERED:
--- NOTE | 2023-10-23 14:45 | DI.CT_ITS ---
Exam(s) CT BRAIN NECK CTA EXAM: CT BRAIN NECK CTA CLINICAL HISTORY: severe acute onset headache, with HTN. TECHNIQUE: Imaging Protocol: Axial CT angiography was performed with multi-slice acquisition and mu lti-planar and MIP reconstructions. CONTRAST MATERIAL: Intravenous: Omnipaque 350 Contrast volume:100 ml Intravenous: Omnipaque 350 Contrast volume:85 COMPARISON: No exams were available for comparison FINDINGS: CT Head W/O and W contrast: Ventricles and Extra axial spaces: Normal in size and morphology for the patient's age. Hemorrhage: None. Cerebral parenchyma: No evidence of acute infarct or mass. Midline shift: None. Brainstem/Cerebellum: No acute findings.. Calvarium: Normal. Visualized Paranasal sinuses/Mastoids: Clear. Soft Tissues: Unremarkable. Enhancement: Normal. CTA Brain W: Internal Carotid Arteries: Petrous: Normal. Cavernous: Calcifications but no significant stenosis. Cerebral: Normal. Middle Cerebral Arteries: Right: No aneurysm, occlusion or significant stenosis. Left: No aneurysm, occlusion or significant stenosis. Anterior Cerebral Arteries: Right: No aneurysm, occlusion or significant stenosis. Left: No aneurysm, occlusion or significant stenosis. Posterior cerebral Arteries: Right: No aneurysm, occlusion or significant stenosis. Left: No aneurysm, occlusion or significant stenosis. Vertebral Arteries: Right: No aneurysm, occlusion or significant stenosis. Left: No aneurysm, occlusion or significant stenosis. Basilar Artery: No aneurysm, occlusion or significant stenosis. CTA Neck W: Common Carotid: Right: No dissection, occlusion or significant stenosis. Left: No dissection, occlusion or significant stenosis. External Carotid: Right: No dissection, occlusion or significant stenosis. Left: No dissection, occlusion or significant stenosis. Internal Carotid: Right: No dissection, occlusion or significant stenosis. Left: Mild calcific plaque proximally. No dissection, occlusion or significant stenosis. Vertebral Artery: Right: No dissection, occlusion or significant stenosis. Left: No dissection, occlusion or significant stenosis. Lung Apices: Normal. Bones: No acute abnormality. Some [id number] degenerative changes in the cervical spine. Soft Tissues: Normal. IMPRESSION: 1. CTA brain: Calcifications in the cavernous portion of the distal internal carotid arteries no sign ificant stenosis. Normal CTA examination of the [place]. 2. Head CT: Unremarkable CT Head. 3. CTA neck: Minimal plaque at the proximal internal carotid artery without stenosis. RADIATION DOSE DELIVERED: 1,941.68mGy.cm Total DLP 1,941.68mGy.cm Total DLP DATA REPOSITORY: All CT scans at this facility are submitted to the National Radiology Data Registry (NRDR) Dose Index Registry (DIR) with the [employer] ([employer]). RADIATION OPTIMIZATION: All CT scans at this facility use at least one of these dose optimization te chniques: automated exposure control; mA and/or kV adjustment per patient size (includes targeted exa ms where dose is matched to clinical indication); or iterative reconstruction.
--- NOTE | 2023-10-23 14:50 | ED.GENADUL_ITS ---
HPI General Date/Time Provider Initiated Documentation: 10/23/23 14:44 . HPI Narrative: 78-year-old female history of hypertension hyperlipidemia presents with acute onset headache approximately 2 hours ago in setting of severe hypertension mild chest discomfort now resolved, denies nausea vomiting shortness of breath fevers chills lightheadedness palpitations presyncope or other systemic signs of illness. Found to have frequent PVCs on EKG at [facility] referred to emergency department for further evaluation and management. Related Data Home Medications Medication Instructions Recorded Confirmed multivitamin (Daily Multi-Vitamin 1 ea PO DAILY 05/20/13 10/23/23 tablet) famotidine 10 mg tablet (Pepcid AC) 10 mg PO DAILY 06/27/22 10/23/23 acetaminophen 500 mg capsule 500 mg PO Q6H PRN 01/09/23 10/23/23 lisinopril 20 mg tablet 20 mg PO DAILY #90 tabs 01/09/23 10/23/23 atorvastatin 20 mg tablet 20 mg PO DAILY #90 tabs 07/10/23 10/23/23 hydrochlorothiazide 25 mg tablet 25 mg PO DAILY #90 tabs 07/10/23 10/23/23 Previous Rx's Medication Instructions Recorded lisinopril 20 mg tablet 20 mg PO DAILY #90 tabs 01/09/23 atorvastatin 20 mg tablet 20 mg PO DAILY #90 tabs 07/10/23 hydrochlorothiazide 25 mg tablet 25 mg PO DAILY #90 tabs 07/10/23 Allergies Allergy/AdvReac Type Severity Reaction Status Date / Time fluoxetine HCl [From Prozac] Allergy Intermediate RASH Verified 10/23/23 14:46 nickel Allergy Mild RASH Verified 10/23/23 14:46 amlodipine AdvReac Intermediate abd pain Verified 10/23/23 14:46 felodipine AdvReac Intermediate headache Verified 10/23/23 14:46 omeprazole AdvReac Intermediate rash Verified 10/23/23 14:46 wheat AdvReac Mild Acid Reflux Verified 10/23/23 14:46 tramadol AdvReac Nausea Verified 10/23/23 14:46 General Stated Complaint: Headache NHUNG: 2 Review of Systems Narrative: Review of Systems Constitutional: negative Eyes: negative ENT: negative Cardiovascular: Chest pain Respiratory: negative Gastrointestinal: negative : negative Musculoskeletal: negative Skin: negative Neurologic: Headache Psych: negative Exam Narrative Exam Narrative: Physical Examination General: alert, awake, cooperative, resting comfortably, no acute distress HEENT: normocephalic, atraumatic; PERRL, EOM intact, conjunctiva normal; no dimitri al discharge; moist mucous membranes, oral and pharyngeal mucosa normal, tolerating secretions Neck: supple, trachea midline; full ROM Chest: normal to inspection Respiratory: normal respiratory effort, speaking in full sentences, clear to auscultation, no wheezing, rales or rhonchi Cardiac: regular rate, regular rhythm, S1S2 intact, no murmurs rubs or gallops GI: abdomen soft, non-tender, non-distended; no palpable mass or hepatosplenomegaly Skin: no lesions, rashes or trauma appreciated Neuro: AAOx3, normal speech, moving all extremities; cranial nerves II through XII intact out of 5 strength upper and lower extremities bilaterally no truncal ataxia Extremities: Trace edema bilateral ankles Psych: Appropriate mood and affect Course Vital Signs Vital signs: Vital Signs Temperature 36.6 C 10/23/23 14:41 Pulse 82 10/23/23 14:41 Respiratory Rate 15 10/23/23 14:41 Blood Pressure 193/132 H 10/23/23 14:41 Pulse Oximetry 98 10/23/23 14:41 Temperature 36.6 C 10/23/23 14:41 Pulse 82 10/23/23 14:41 Respiratory Rate 15 10/23/23 14:41 Blood Pressure 193/132 H 10/23/23 14:41 Blood Pressure Position Sitting 10/23/23 14:41 Pulse Oximetry 98 10/23/23 14:41 Oxygen Delivery Method Room Air 10/23/23 14:41 Oxygen Flow Rate 0 10/23/23 14:41 Pain Level 10 10/23/23 14:41 Medical Decision Making 78-year-old female history of hypertension presents with acute onset headache 2 hours ago in the setting of severe hypertension, sharp in nature frontal, neurologic intact nonfocal, afebrile nontoxic, noted to be hypertensive on a rrival, patient was also having chest pain earlier now resolved, found to have frequent PVCs on EKG at [facility]. Patient endorses medical compliance for her hypertension and hyperlipidemia. Denies new psychosocial stressors or inciting event. Consider hypertensive emergency versus intracerebral hemorrhage versus ACS lower suspicion for aortic pathology was also consider electrolyte derangement versus cerebral aneurysm, lower suspicion for PE pneumothorax pneumonia or pleural effusion. Stat CT CTA head neck, labetalol IV 5 mg, EKG chest x-ray troponin basic labs close reassessment of signs and symptoms. 18: 10 patient resting comfortably feeling much better blood pressure now 110 systolic, CTA head neck negative, labs largely unremarkable however second troponin came back slightly elevated 109, patient is chest pain-free. Likely demand from severe hypertension. Will trend troponin will reassess symptoms. 20: 08 troponin plateauing. Patient asymptomatic. Remains hemodynamically stable. Patient will be placed on referral list for [facility] cardiology. Home care instructions and return precautions given. Will add calcium channel nehal to patient's antihypertensive regimen. Counseled her to follow closely with her primary care physician to adjust medications as needed. 20: 12 upon review of patient allergy list patient is allergic to amlodipine had adverse reaction with abdominal pain and nausea. Will allow primary care physician to consider adjusting current medications and/or adding further medication. Quality:[facility] Health Related Social Needs: No Data to Display PFSH All Active Problems (Updated 10/23/23 @ 20:10 by Faizan Jones MD) Hypertensive emergency (Acute) Hypertensive emergency (Acute) Premature ventricular contractions (Acute) Wears hearing aid in both ears (Acute) Essential hypertension (Chronic 11/26/13) Gastroesophageal reflux disease (Chronic) mild chronic inflammation Osteoarthritis (Chronic) morning stiffness, improves through the day Asymmetrical sensorineural hearing loss of both ears (Chronic) uses hearing aides Risk for coronary artery disease greater than 20% in next 10 years (Acute) Medical History (Updated 10/23/23 @ 20:10 by Faizan Jones MD) Seasonal affective disorder Trochanteric bursitis, left hip Injected: 08/10/2022; 04/24/2021; s/p surgery Abnormal mammogram, unspecified LEFT Breast-atypical hyperplasia; breast bx-neg 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 W/U w/ Emily 1995 Dysfunctional uterine bleeding (08/08/94) perimenopausal bleeding; endometrial BX-neg. Diverticulosis (12/13/15) Tinnitus Surgical History History of bunionectomy History of endoscopy (~11/2000) Tendonitis involving left hip abductors (04/19/16) surgery 11/09/2016 Ligation of fallopian tube Biopsy of breast atypical hyperplasia; excison-fibrocystic Family History Mother Essential hypertension Hyperlipidemia Neoplasm Cervical, lung Father Essential hypertension Heart disease Hyperlipidemia Sister Neoplasm Cervical Social History (Updated 01/10/23 @ 16:12 by Nataliya Chavez) Smoking/Tobacco Use Status: Former Tobacco Use tobacco type: cigarettes Quit Date: 09/09/81 Tobacco: How many years used: 7 Second Hand Exposure: Yes Smoking risk assessment performed?: Yes Alcohol Intake: current Alcohol Intake frequency: 0-2 drinks per day Alcohol type: wine Drug use: Never Substance use type: does not use Counseling given: No Caregiver/Support person: No Household members: spouse Housing: house Number of Children: 3 number of grandchildren: 6 Communication Needs: Hard of Hearing and Corrective Lenses Do you need help understanding health information?: Never current occupation: Retired nurse Pets and animals: No Sexually active: Yes Do you think of yourself as: straight/heterosexual Current gender identity: female What is your relationship status?: How often do you talk on the phone with friends or family?: twice per week How often do you get together with friends or relatives?: once per week How often do you attend adventist or gnosticism services?: 4 or more times per year Do you belong to any clubs or organized social groups?: yes Panel score (0-1 are the most socially isolated patients): 4 What type of physical activity do you participate in: walking Duration: 15-30 minutes/day Frequency: 5-6 times per week [place]/Ad[employer]: [employer] Special roma needs: No Seatbelt use: always Drive intox or ride w/intox heavy truck driver: No Do you feel safe at home: Yes Do you feel safe in your relationship?: Yes Discharge Plan Disposition Patient Disposition: Home Condition: Improving Discharge Details Chief Complaint: Headache Clinical Impression: Hypertensive emergency Primary Care Provider: Pastora Grubbs ED Provider: Faizan Jones Home Meds and New Rx's Prescriptions: No Action famotidine [Pepcid AC] 10 mg tablet 10 mg PO DAILY acetaminophen 500 mg capsule 500 mg PO Q6H PRN lisinopril 20 mg tablet 20 mg PO DAILY Qty: 90 3RF hydrochlorothiazide 25 mg tablet 25 mg PO DAILY Qty: 90 3RF atorvastatin 20 mg tablet 20 mg PO DAILY Qty: 90 3RF multivitamin [Daily Multi-Vitamin] 1 EACH tablet 1 ea PO DAILY Discharge Instructions Instructions: Hypertension (ED) Additional Instructions: Please follow-up with primary care physician. Please return to the emergency department for any worsening symptoms.
[2023-10-23] MEDS: Labetalol 100 MG/20 ML VIAL IVP (14:57)
[2023-10-23 15:08] LABS: Abs Immature Grans 0.02 10^3/uL (0.0-0.06); Absolute Basophil Count 0.07 10^3/uL (0.0-0.2); Absolute Eosinophil Count 0.11 10^3/uL (0.0-0.7); Absolute Lymphocyte Count 1.33 10^3/uL (1.2-3.4); Absolute Monocyte Count 0.51 10^3/uL (0.1-0.8); Absolute Neutrophil Count 4.69 10^3/uL (1.2-6.7); Eosinophils % 1.6; HCT 40.4 % (36.0-46.0); HGB 13.4 g/dL (11.2-15.7); Immature Grans % 0.3; Lymphocytes % 19.8; MCH 29.6 pg (27.0-33.0); MCHC 33.2 % (32.0-36.0); MCV 89 fL (80-95); MPV 9.6 fL (8.0-11.0); Monocytes % 7.6; Neutrophils % 69.7; Platelet Count 243 10^3/uL (130-400); RBC 4.53 10^6/uL (3.93-5.22); RDW 11.9 % (11.7-14.6); RDW-SD 38.1 fL; WBC 6.73 10^3/uL (4.4-10.8)
[2023-10-23 15:22] LABS: PTT Activated 25.5 sec (23.6-32.8); Prothrombin Time 10.4 sec (9.1-11.1)
[2023-10-23] MEDS: Omnipaque 350 MG/ML 100 ML BTL IJ (15:37)
[2023-10-23 15:39] LABS: ALT 34 U/L (14-59); AST 26 U/L (15-37); Albumin 3.9 g/dL (3.4-5.0); Alkaline Phosphatase 75 U/L (46-116); Anion Gap 8.6 mmol/L (3-11); BUN 20 mg/dL (7-18); Bilirubin, Total 0.8 mg/dL (0.2-1.0); CO2 30.4 mmol/L (21.0-32.0); CREATININE 0.7 mg/dL (0.55-1.02); Calcium 9.1 mg/dL (8.5-10.1); Chloride 103 mmol/L (98-107); Estimated GFR 89.58 (mL/min/1.73m2); Glucose 101 mg/dL (74-106); NT-proBNP 152 pg/mL (<300); Potassium 3.5 mmol/L (3.5-5.1); Sodium 142 mmol/L (136-145); TSH (W/Ref FT4) 0.91 uIU/mL (0.36-3.74); Total Protein 7.4 g/dL (6.4-8.2); Troponin I < 50 ng/L (< or =60)
[2023-10-23] MEDS: Normal Saline - Diluent 50 ML VIAL IJ (15:39)
[2023-10-23] MEDS: hydrALAZINE 20 MG/ML VIAL 10 MG IVP (16:27)
[2023-10-23] MEDS: ACETAMINOPHEN 1,000 MG/100 ML BTL 400 MG IVPB (17:02)
[2023-10-23 17:47] LABS: Troponin I 109 ng/L (< or =60)
[2023-10-23] MEDS: Aspirin 81 MG CHEW 324 MG CH (18:09)
[2023-10-23 20:01] LABS: Troponin I 148 ng/L (< or =60)
--- NOTE | 2023-10-23 20:14 | NUR.NOTE ---
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
== END 2023-10-23 20:55 | disposition home or self-care (01) ==
PROVIDERS: Emergency Provider Emergency Medicine; PCP Family Medicine
DX: I16.0 Hypertensive urgency (principal); I10 Essential (primary) hypertension; E78.5 Hyperlipidemia, unspecified; R00.8 Other abnormalities of heart beat; Z87.891 Personal history of nicotine dependence
CPT/HCPCS: 70496; 70498; 80053; 93005; 96374; 96375; 99284; 99285; 71046; 83735; 83880; 84443; 84484; 85025; 85610; 85730; 93010; J0131; J0360; J1920; J3490

== ENCOUNTER 2023-11-01 12:38 | Outpatient (CLI) | payer MEDICARE, BC, SELFPAY ==
--- NOTE | 2023-11-01 12:30 | RT.EKG_ITS ---
APPROVED REPORT Exam: Resting ECG Reason for Exam: baseline Patient Location: O HR:80 bpm ECG Measurements Heart Rate 80 AXIS IA 133 P -13 QRSd 92 QRS 3 QT 378 T 52 QTc 436 Conclusion Sinus rhythm...normal P axis, V-rate 50- 99 Multiple ventricular premature complexes...V complexes w/ short R-R intervls Otherwise normal ECG
== END 2023-11-01 12:39 | disposition home or self-care (01) ==
LOC: DI.CARD 12:41
PROVIDERS: PCP Family Medicine; Referring Provider Family Medicine; Visit Provider Internal Medicine Cardiovascular Disease
DX: I16.1 Hypertensive emergency (principal)
CPT/HCPCS: 93010

== ENCOUNTER → 2023-11-01 12:38 | Outpatient (BNVA) | payer MEDICARE, BC, SELFPAY | PROVIDERS: PCP Family Medicine; Referring Provider Family Medicine; Visit Provider Internal Medicine Cardiovascular Disease | DX: R06.02 Shortness of breath (principal); I49.3 Ventricular premature depolarization; R06.09 Other forms of dyspnea; I10 Essential (primary) hypertension; I16.1 Hypertensive emergency | CPT/HCPCS: 93005; 99214 ==

== ENCOUNTER 2023-11-07 08:24 | Outpatient (RCR) | payer MEDICARE, BC, SELFPAY ==
--- NOTE | 2023-11-07 09:00 | HOLTER_ITS ---
APPROVED REPORT Conclusion This is a 48-hour Holter monitor Predominant rhythm is sinus with an average heart rate of 66. Maximum was 99 There was no significant bradycardia There were rare to occasional premature ventricular contractions comprising 1.7% of total There were rare premature atrial contractions There was 1 atrial run, 12 beats in duration There was no atrial fibrillation, no high-grade AV block, no pauses greater than 3 seconds Multiple patient symptoms were reported which could not be reliably correlated to any dysrhythmia
== END 2023-11-07 23:59 | disposition home or self-care (01) ==
LOC: CARDOPNVT 08:24
PROVIDERS: PCP Family Medicine; Visit Provider Family Medicine
DX: I49.3 Ventricular premature depolarization (principal)
CPT/HCPCS: 93227; 93225

== ENCOUNTER 2023-11-11 16:22 | Outpatient (RCR) | payer MEDICARE, BC, SELFPAY | END 2023-12-08 23:59 | disposition home or self-care (01) | LOC: CARDOPNVT 16:22 | PROVIDERS: PCP Family Medicine; Visit Provider Family Medicine | DX: I49.3 Ventricular premature depolarization (principal) | CPT/HCPCS: 93227; 93226 ==

== ENCOUNTER → 2023-11-18 00:24 | Outpatient (CLI) | payer MEDICARE, BC, SELFPAY ==
--- NOTE | 2023-11-18 07:00 | DI.NM_ITS ---
APPROVED REPORT Exam: Exercise Treadmill Patient Location: Out-Patient Room/Bed: Stress Nurse: Narda Gomez RN Ordering Provider:MELVIN BULLOCK, Contact Number: BMI: 31.73 Baseline Rhythm: Sinus Bradycardia Indications: DENT Medical History Medical History: DENT, hypertensive emergency, HTN, HLD, PVCs, GERD, osteoarthritis Cardiac Medications: Famotidine, lisinopril, atorvastatin, HCTZ, hydralazine Allergies: Prozac, Nickel, amlodipine, felodipine, omeprazole, wheat, tramadol Cardiac Risk Factors: Family Hx, HTN, HLD Previous Cardiac Procedures: None Pretest Chest Pain Characteristics: None Exercise History: Physically active Physical Disabilities: None Lung Sounds: Clear to auscultation Heart Sounds: Regular Stress Test Details Test: Exercise stress testing was performed using a Gerry protocol. Nuclear Acquisition: Rest Tc-99m/Stress Tc-99m 1 day Rest Isotope: Tc-99m Sestamibi. Dose: 10 Date: 11/18/2023 Injection Time: 0855 Stress Isotope: Tc-99m Sestamibi. Dose: 30 Date: 11/18/2023 Injection Time: 1022 HR Resting HR Supine: 58 bpm Max Heart Rate (APMHR): 144.096391 bpm Resting HR Standin bpm Target HR (85% APMHR): 122.742481 bpm Max HR Achieved: 132 bpm % of APMHR: 91.67 Recovery HR: 68 bpm HR response to stress: Normal HR response to stress BP Resting BP Supine: 168/84 mmHg Resting BP Standin/74 mmHg Max BP: 212/72 mmHg Recovery BP: 168/70 mmHg BP response to stress: Normal blood pressure response to stress. ECG Resting ECG: Sinus Rhythm, Sinus Bradycardia Ectopy: None Stress ECG: Sinus Tachycardia ST Change: Upsloping ST depression Lead(s): II, aVF Stage: [address] Deviation: 2 mm Arrhythmia: None Recovery ECG: Sinus Rhythm Recovery ST Change: No significant ST segment changes noted Recovery Arrhythmia: VPC Clinical Reason for Termination: Target HR Achieved Stress Symptoms: Dyspnea Exercise duration: 3 min44 sec Highest Stage Reached: Stage 2: 2.5 mph at 12% grade. Exercise capacity: 5.5 METs Angina Score: None Padilla Treadmill Score: -7.0 Rate Pressure Product: [id number] Stress ECG Conclusion 1. Resting electrocardiogram was within normal limits 2. Patient exercised on a Gerry protocol and achieved a workload of 5.5 METS limited by dyspnea 3. Normal heart rate and blood pressure response to exercise. 4. Patient achieved 92% of predicted heart rate for age 5. Electrocardiographic portion of the test showed J-point depression and upsloping ST segments, not diagnostic of ischemia 6. See MPI report Padilla Treadmill Score is -7.0 which is Moderate risk. Stress Test Summary STAGE Time (mins) Speed (mph) Grade (%) HR BP SpO2 SYMPTOMS METS Supine 58 168/84 93 Standing 63 158/74 96 1 3 1.7 10 122 174/90 90 4.5 1 min recovery 108 212/72 91 3 min recovery 74 192/84 96 6 min recovery 68 168/70 96 MPI Conclusion Myocardial perfusion is normal. There is no ischemia or evidence of prior infarction EF 65% with normal wall motion Radiologist Interpretation Radiologist Interpretation by: Alejandro Andersen MD Interpretation Date/Time: 11/18/2023 16:36:23
== END ==
PROVIDERS: PCP Family Medicine; Visit Provider Internal Medicine Cardiovascular Disease
DX: R06.02 Shortness of breath (principal)
CPT/HCPCS: 78452; 93016; 93018; 93017

== ENCOUNTER → 2023-11-21 02:27 | Outpatient (CLI) | payer MEDICARE, BC, SELFPAY ==
--- NOTE | 2023-11-21 14:00 | DI.US_ITS ---
APPROVED REPORT EXAM: Comprehensive 2D, Doppler, and color-flow Echocardiogram Patient Location: Out-Patient Communications Executive: Marielle Patino RDCS (AE) Indications: PVC, recent Hypertensive emergency, HTN Other Information Study Quality: Good Conclusion Mild concentric left ventricular hypertrophy. Ejection fraction is 60-65%.. Diastolic function is n ormal for age. There are no segmental wall motion abnormality Normal right ventricular size and function Both atria are normal in size There are no structural or hemodynamically significant valvular abnormalities Estimated right ventricular systolic pressure is 26 mm Hg Wall motion Left Ventricle The left ventricle is normal size. The left ventricular systolic function is normal. The left ventric ular ejection fraction is within the normal range. Mild concentric left ventricular hypertrophy. Ther e is normal LV segmental wall motion. There is no ventricular septal defect visualized. LVEF is 60-65 %. Right Ventricle The right ventricle is normal size. The right ventricular systolic function is normal. Atria The left atrium size is normal. The right atrium size is normal. The interatrial septum is intact wit h no evidence for an atrial septal defect. Aortic Valve The aortic valve is normal in structure. There is no aortic valvular stenosis. No aortic regurgitatio n is present. Mitral Valve The mitral valve is normal in structure. No evidence of mitral valve stenosis. Trace mitral regurgita tion. Tricuspid Valve The tricuspid valve is normal in structure. There is no tricuspid valve stenosis. Trace tricuspid reg urgitation. The RVSP is 26.5mmHg. Pulmonic Valve The pulmonary valve is normal in structure. There is no pulmonic valvular stenosis. Trace to mild pul max regurgitation. Great Vessels The aortic root is normal in size. The ascending aorta is normal Aortic arch is normal in caliber. IV C is normal in size and collapses >50% with inspiration. Pericardium There is no pericardial effusion. 2D Dimensions IVSD d PLAX 1.13 cm F: 0.6-1.0 Ao Root d 2.76 cm F: 2.7 - 3.3 LVPW d PLAX 1.10 cm F: 0.6 - 1.0 Ao Asc Diam d 3.33 cm F: 2.3 - 3.1 LVID d PLAX 4.59 cm F: 3.8 - 5.2 LVDs 3.32 cm F: 2.2 - 3.5 LV EF Teichholz 53.8 % FS 27.73 % LV EDV (Teich) 97.0 mL LV ESV (Teich) 44.8 mL M-Mode TAPSE 2.91 cm (M/F) >1.7 Auto EF LV EDV A4C 94.8 mL LV EDV A2C 89.2 mL LV EDV BP 92.9 mL LV ESV A4C 34.3 mL LV ESV A2C 34.1 mL LV ESV BP 33.8 mL LVEF(%) A4C 63.8 % LVEF(%) A2C 61.8 % LVEF(%) BP 63.6 % LV SV A4C 60.5 ml LV SV A2C 55.1 ml LV SV BP 59.0 ml LV CO A4C 4.0 L/min LV CO A2C 3.5 L/min LV CO BP 3.8 L/min HR A4C 66.55 BPM HR A2C 63.38 BPM LV EDV Index (BP) LA Volume LA Length A4C 5.2 cm LA Length A2C 5.8 cm LA Area A4C s 17.26 cm2 LA Area A2C s 17.43 cm2 LA Vol A4C A-L 48.57 mL LA Vol A2C A-L 44.59 mL LA Vol Biplane A-L 49.1 mL LA Vol/BSA A4C A-L LA Vol/BSA A2C A-L LA Vol/BSA BP A-L 28.0 mL/m2 LA Vol A4C MOD 46.3 mL LA Vol A2C MOD 42.2 mL LA Vol BP MOD 46.5 mL RA Volume RA Area A4C 13.5 cm2 RA ESV A4C (A-L) 30.5mL RA Vol/BSA A4C A-L RA Length A4C 5.1 cm RA ESV A4C (MOD) 28.4mL LV Diastology MV E' medial 0.088 (>0.07 m/s) MV E Vmax 0.71 (0.4-1.3 m/s) MV E/E' MED 8.06 (<14) MV A Vmax 1.00 (0.4-1.3 m/s) E/A Ratio 0.7 Aortic Valve AoV Vmax 1.89 m/s LVOT Vmax 1.43 m/s AoV Peak Grad 14.3 mmHg LVOT Peak Grad 8.1 mmHg AoV Area (Vmax) 2.09 cm2 LVOT VTI 0.270 m AoV VTI 0.375 m LVOT Mean Grad 3.8 mmHg AoV Mean Davon. 1.20 m/s LVOT SV 74.91 mL AoV Mean Grad 6.8 mmHg LVOT Diam s 1.85 cm AoV Area (VTI) 2.00 cm2 Velocity Ratio 0.76 Mitral Valve MV DT 279 (160-240 msec) MV Vmax TIPS 0.81 m/s MV Mean Grad 1.1 (<2mmHg) MV VTI 0.301 m Pulmonary Valve PV Vmax 1.24 (0.5-1.5 m/s) RVOT Vmax 0.72 m/s PV Peak Grad 6.2 mmHg RVOT Peak Gr. 2.1 mmHg PV Mean Davon 0.75 m/s RVOT VTI 0.148 m PV Mean Grad 2.7 mmHg RVOT Mean Gr. 1.0 mmHg Tricuspid Valve RA Pressure 3.00 mmHg TR Vmax 2.42 m/s TV S' 0.15 m/s TR Peak Grad 23.4 mmHg RVSP (TR) 26.5 mmHg
== END ==
PROVIDERS: PCP Family Medicine; Visit Provider Family Medicine
DX: I49.3 Ventricular premature depolarization (principal)
CPT/HCPCS: 93306

== ENCOUNTER 2023-12-06 02:16 | Outpatient (CLI) | payer MEDICARE, BC, SELFPAY ==
[2023-12-06 12:21] LABS: Bilirubin Negative (Negative); Blood Trace-lysed (Negative); Clarity Clear (Clear); Glucose Negative (Negative); Ketones Negative (Negative); Leukocyte Esterase Negative (Negative); Nitrite Negative (Negative); Specific Gravity 1.015 (1.005-1.025); Urobilinogen 0.2 mg/dL (Up to 0.2); pH 7.5 (5-8)
[2023-12-06 12:28] LABS: Bacteria Negative HPF (Negative); C & S Indicated? No; Casts Negative LPF (Negative); Crystals Negative HPF (Negative); Epithelial Cells Rare HPF (Negative); Mucus Negative (Negative); RBC 0-2 HPF (0-2); WBC Negative HPF (0-5)
[2023-12-11 22:05] LABS: Creatinine, Random Ur 16 mg/dL (16 - 326); Total Metanephrine/Creatinine 500 mcg/g Cr
== END 2023-12-06 02:17 | disposition home or self-care (01) ==
LOC: LBO 02:16
PROVIDERS: PCP Family Medicine; Visit Provider Family Medicine
DX: I16.1 Hypertensive emergency (principal); R30.0 Dysuria
CPT/HCPCS: 36415; 82533; 81003; 81015; 82088; 83835; 84244

== ENCOUNTER → 2023-12-13 10:49 | Outpatient (BNVA) | payer MEDICARE, BC, SELFPAY | PROVIDERS: PCP Family Medicine; Referring Provider Family Medicine; Visit Provider Internal Medicine Cardiovascular Disease | DX: I49.3 Ventricular premature depolarization (principal); I10 Essential (primary) hypertension | CPT/HCPCS: 99213 ==

== ENCOUNTER 2024-07-17 12:41 | Outpatient (REF) | payer MEDICARE, BC, SELFPAY ==
[2024-07-17 21:23] LABS: Anion Gap 9.5 mmol/L (3-11); BUN 17 mg/dL (7-18); CO2 28.5 mmol/L (21.0-32.0); CREATININE 0.7 mg/dL (0.55-1.02); Calcium 9.1 mg/dL (8.5-10.1); Chloride 105 mmol/L (98-107); Estimated GFR 89.58 (mL/min/1.73m2); Glucose 86 mg/dL (74-106); Sodium 143 mmol/L (136-145)
== END 2024-07-17 12:42 | disposition home or self-care (01) ==
LOC: LBN 12:41
PROVIDERS: PCP Family Medicine; Visit Provider Family Medicine
DX: I10 Essential (primary) hypertension (principal)
CPT/HCPCS: 80048

== ENCOUNTER 2024-08-13 02:07 | Outpatient (CLI) | payer MEDICARE, BC, SELFPAY ==
--- NOTE | 2024-08-13 13:05 | DI.MAMMO_ITS ---
Exam(s) MAMMO SCREENING EXAM: MAMMO SCREENING CLINICAL HISTORY: screening,z12.39 TECHNIQUE: Mammograms were interpreted according to the usual protocol including computer analysis w [employer] CAD system, tomosynthesis and C-view imaging. COMPARISON: 2015 through 2022 FINDINGS: The breasts are composed of scattered fibroglandular densities, Breast Density category B. No suspicious masses or suspicious microcalcifications are seen. No skin thickening or abnormal axillary lymph nodes are seen. There has been no significant change from prior exams. IMPRESSION: BI-RADS Category 1, Negative mammogram Yearly screening mammography is recommended. Breast Density - Category B, scattered fibroglandular densities. A negative radiographic report should not delay biopsy if a dominant or clinically suspicious mass is present. Up to ten percent of cancers are not identified on mammography. A negative report may reinforce clinical impression. Adenosis and dense breasts may obscure an underlying neoplasm. False positive reports average 6 to 10%. Patient will receive a letter notifying them of these results.
== END 2024-08-13 02:27 ==
LOC: DI 02:07
PROVIDERS: PCP Family Medicine; Visit Provider Family Medicine
DX: Z12.31 Encounter for screening mammogram for malignant neoplasm of breast (principal); R92.323 Mammographic fibroglandular density, bilateral breasts
CPT/HCPCS: 77063; 77067

== ENCOUNTER 2025-01-27 09:37 | Outpatient (REF) | payer MEDICARE, BC, SELFPAY ==
--- NOTE | 2025-01-27 09:00 | SKI_PTH ---
PATIENT: Caty Camejo LOC: [facility] U#:[id number] AGE/SX: 79/F ROOM: RE01/27/[address]: Pastora Grubbs : 1945 BED: DIS: 01/27/2025 SPEC #: [id number] RECD: 01/27/25 12:57 STATUS: CHATO REQ #: [id number] PHAM: 01/27/25 09:[address]: Pastora Grubbs DEPT: Surgical Specimen RECD BY: Carol Ortiz Tissues: 1 - SKIN BIOPSY(SHAVE/PUNCH) Procedures: SKIN LEVEL 4 Comments: [id number]
== END 2025-01-27 09:38 | disposition home or self-care (01) ==
LOC: LBN 09:37
PROVIDERS: PCP Family Medicine; Visit Provider Family Medicine
DX: L82.1 Other seborrheic keratosis (principal)
CPT/HCPCS: 88305

== ENCOUNTER 2025-06-15 10:32 | Outpatient (CLI) | payer MEDICARE, BC, SELFPAY ==
--- NOTE | 2025-06-15 10:30 | DI.RAD_ITS ---
Exam(s) XR KNEE RT 3V AP,LAT,ASMITA EXAM: XR KNEE RT 3V AP,LAT,ASMITA CLINICAL HISTORY: M25.561 Rt knee pain,Worsening pain. TECHNIQUE: 2D digital imaging was performed of the right knee. Three views obtained. AP, lateral and PA tunnel views were obtained. COMPARISON: There are no priors for comparison. FINDINGS: BONES: No acute fracture is present. No bony destructive lesion is seen. There is a small enthesophyte at the superior patella. JOINTS: There is mild narrowing of the femoral tibial joint. There is no significant joint effusion. SOFT TISSUE: Atherosclerotic calcification is present. IMPRESSION: Mild joint space narrowing. DATA REPOSITORY: RADIATION DOSE DELIVERED:
== END 2025-06-15 10:52 ==
LOC: DI 10:33
PROVIDERS: PCP Family Medicine; Visit Provider Nurse Practitioner Family
DX: M25.561 Pain in right knee (principal)
CPT/HCPCS: 73562

== ENCOUNTER 2025-07-16 00:53 | Outpatient (CLI) | payer MEDICARE, BC, SELFPAY ==
[2025-07-16 14:13] LABS: Anion Gap 7.0 mmol/L (3-11); BUN 13 mg/dL (7-18); CO2 33.0 mmol/L (21.0-32.0); Calcium 9.4 mg/dL (8.5-10.1); Chloride 101 mmol/L (98-107); Glucose 87 mg/dL (74-106); Potassium 3.5 mmol/L (3.5-5.1); Sodium 141 mmol/L (136-145)
== END 2025-07-16 00:54 | disposition home or self-care (01) ==
LOC: LOS 00:53
PROVIDERS: PCP Family Medicine; Visit Provider Family Medicine
DX: I10 Essential (primary) hypertension (principal)
CPT/HCPCS: 36415; 80048

== ENCOUNTER → 2025-08-19 01:02 | Outpatient (CLI) | payer MEDICARE, BC, SELFPAY ==
--- NOTE | 2025-08-19 12:48 | DI.MAMMO_ITS ---
Exam(s) MAMMO SCREENING EXAM: MAMMO SCREENING CLINICAL HISTORY: screening,z12.39 TECHNIQUE: Mammograms were interpreted according to the usual protocol including computer analysis with CAD system, tomosynthesis and C-view imaging. COMPARISON: 2015 through 2023 FINDINGS: The breasts are composed of scattered fibroglandular densities, Breast Density category B. No suspicious masses or suspicious microcalcifications are seen. No skin thickening or abnormal axillary lymph nodes are seen. There has been no significant change from prior exams. IMPRESSION: BI-RADS Category 1, Negative mammogram Yearly screening mammography is recommended. Breast Density - Category B - There are scattered areas of fibroglandular density. Breast density Category C or D implies that the patient has dense breast tissue. Dense breast tissue can make it harder to find cancer on a mammogram. Dense breast tissue is also associated with an increased risk of breast cancer. This information about the result of the mammogram report was provided to the patient to raise their awareness. Use this report when you speak with the patient about their risks for breast cancer, which includes their family history. At that time, you may recommend additional screening tests (Ultrasound or MRI) as these tests may add significant information. A negative radiographic report should not delay biopsy if a dominant or clinically suspicious mass is present. Up to ten percent of cancers are not identified on mammography. A negative report may reinforce clinical impression. Adenosis and dense breasts may obscure an underlying neoplasm. False positive reports average 6 to 10%. Patient will receive a letter notifying them of these results.
== END ==
LOC: DI 01:02
PROVIDERS: PCP Family Medicine; Visit Provider Family Medicine
DX: Z12.31 Encounter for screening mammogram for malignant neoplasm of breast (principal); R92.323 Mammographic fibroglandular density, bilateral breasts
CPT/HCPCS: 77063; 77067